=== PATIENT | female | born 1985 | race Caucasian/White ===

== ENCOUNTER 2023-08-08 11:24 | Emergency (ER) | payer MEDICAID ==
[~2023-08-08] VITALS: Ht 152.4 cm; Wt 74.8 kg
[2023-08-08 11:44] VITALS: O2SAT 100
[2023-08-08 12:11] LABS: BASOPHILS % 0.2 % (0.0-2.0); EOSINOPHILS % 0.1 % (0.0-5.0); HEMATOCRIT. 41.9 % (36.0-48.0); HEMOGLOBIN. 14.4 g/dL (12.0-16.0); LYMPHOCYTES % 9.9 % (20.0-50.0); MEAN CORPUSCULAR HEMOGLOBIN 27.8 pg (28.0-32.0); MEAN CORPUSCULAR HGB CONC 34.4 g/dL (31.0-37.0); MEAN CORPUSCULAR VOLUME 80.8 fL (81.0-99.0); MEAN PLATELET VOLUME 6.9 fl (7.4-10.4); MONOCYTES % 4.2 % (2.0-8.0); NEUTROPHILS % 85.6 % (40.0-76.0); PLATELET 355 x1000/uL (130-400); RED BLOOD CELL COUNT 5.19 mill/uL (4.2-5.4); RED CELL DISTRIBUTION WIDTH 13.2 % (11.6-14.6); WHITE BLOOD COUNT 18.5 x1000/uL (4.5-11.0)
[2023-08-08 12:13] LABS: CHLORIDE 101 mEq/L (98-107); POTASSIUM 4.3 mEq/L (3.5-5.1); SODIUM 135 mEq/L (136-145)
[2023-08-08 12:14] LABS: CALCIUM 9.3 mg/dL (8.7-10.4); CARBON DIOXIDE 27 mEq/L (21-32)
[2023-08-08 12:19] LABS: CREATININE 0.7 mg/dL (0.6-1.0); GLUCOSE 140 mg/dL (70-105); UREA NITROGEN BLOOD 9 mg/dL (9-23)
[2023-08-08 12:21] LABS: ALANINE AMINOTRANSFERASE 27 IU/L (10-49); ALBUMIN 4.9 g/dL (3.2-4.8); ASPARTATE AMINOTRANSFERASE 26 IU/L (<34); BILIRUBIN DIRECT 0.3 mg/dL (<=3.0)
[2023-08-08 12:22] LABS: PROTEIN TOTAL 7.9 g/dL (6.0-8.3)
[2023-08-08 13:08] LABS: HCG SCREEN NEGATIVE
[2023-08-08 14:38] LABS: CLARITY URINE CLEAR (CLEAR); COLOR URINE YELLOW (YELLOW); GLUCOSE URINE NEGATIVE (NEGATIVE); KETONES URINE NEGATIVE (NEGATIVE); LEUKOCYTE ESTERASE URINE NEGATIVE (NEGATIVE); NITRITE URINE NEGATIVE (NEGATIVE); OCCULT BLOOD URINE 2+ (NEGATIVE); PROTEIN URINE 1+ (NEGATIVE); SPECIFIC GRAVITY URINE 1.023 (1.005-1.030); UROBILINOGEN URINE 0.2 E.U./dL (0.2-1.0)
[2023-08-08] MEDS: SODIUM CHLORIDE 0.9% 1,000 ML IV ONE (14:51)
[2023-08-08] MEDS: ONDANSETRON 4MG ODT PO ONE (14:52)
[2023-08-08 15:02] LABS: SQUAMOUS EPITHELIAL CELL URINE 1+ /lpf (RARE/1+)
[2023-08-08 15:04] LABS: BACTERIA URINE NONE SEEN; WBC URINE 0-2 /hpf (0-2)
[2023-08-08 15:05] LABS: MUCUS URINE 1+ /lpf (< = 2+); YEAST URINE NONE SEEN
[2023-08-08] MEDS ORDERED: CEFEPIME 1GM IN DEXT 5% 50ML IV ONE (16:00)
[2023-08-08] MEDS: CEFEPIME 2GM/100ML 100 ML IV NR (16:33)
[2023-08-08 17:00] VITALS: BP 121/91; PULSE 99; RESP 16; TEMP 98.2
[2023-08-08] MEDS ORDERED: ONDANSETRON HCL 4MG/2ML INJ IV PRN (17:30)
[2023-08-08] MEDS ORDERED: MORPHINE SULFATE 2 MG/ML CPJ (NOT FOR IM USE) IV PRN (17:30)
[2023-08-08] MEDS ORDERED: DEXT 5%/0.45% NACL KCL 20MEQ/L 1,000 ML IV SCH (17:30)
[2023-08-08] MEDS ORDERED: MORPHINE SULFATE 4 MG/ML INJ (FOR IV/IM USE) IV PRN (17:30)
[2023-08-08] MEDS ORDERED: HYDROCODONE/ACETAMINOPHEN 5/325MG TABLET PO PRN ×2 (17:30)
[2023-08-08] MEDS ORDERED: BUPIVACAINE HCL/PF 0.5% (5MG/ML) 10ML ONE (18:04)
[2023-08-08] MEDS ORDERED: SKIN ADHESIVE 0.7 GM EA TOP ONE (18:04)
[2023-08-08] MEDS ORDERED: ROCURONIUM BROMIDE 10MG/ML VIAL 5ML IV ONE (18:08)
[2023-08-08] MEDS ORDERED: ONDANSETRON HCL 4MG/2ML INJ ONE (18:08)
[2023-08-08] MEDS ORDERED: DEXAMETHASONE 4MG/ML 1ML VIAL ONE (18:08)
[2023-08-08] MEDS ORDERED: FENTANYL CITRATE/PF 50MCG/ML 2ML VIAL ONE (18:09)
[2023-08-08] MEDS ORDERED: PROPOFOL 200MG/20ML VIAL IV ONE (18:09)
[2023-08-08] MEDS ORDERED: MIDAZOLAM HCL 2 MG/2 ML VIAL ONE (18:10)
[2023-08-08] MEDS ORDERED: NALOXONE HCL 0.4MG/ML VIAL IV PRN (18:15)
[2023-08-08] MEDS ORDERED: SUGAMMADEX SODIUM 200 MG/2 ML VIAL IV NR (18:15)
[2023-08-08] MEDS ORDERED: HYDROMORPHONE HCL/PF 2MG/ML CPJ IV PRN (18:30)
[2023-08-08] MEDS ORDERED: FENTANYL CITRATE/PF 50MCG/ML 2ML VIAL IV PRN (18:30)
[2023-08-08] MEDS ORDERED: IPRATROPIUM/ALBUTEROL 0.5-3(2.5)MG/3ML NEB HHN PRN (19:45)
[2023-08-08] MEDS ORDERED: MAGNESIUM/ALUMINUM HYDROXIDE/SIMETHICONE 30ML UDC PO PRN (19:45)
[2023-08-08] MEDS ORDERED: ACETAMINOPHEN 325MG TABLET PO PRN (19:45)
[2023-08-08] MEDS ORDERED: CLONIDINE 0.1MG TABLET PO PRN (19:45)
[2023-08-08] MEDS ORDERED: GUAIFENESIN 200MG/10ML SUGAR FREE UDC PO PRN (19:45)
[2023-08-08] MEDS: ONDANSETRON HCL 4MG/2ML INJ IV PRN (20:27)
== END 2023-08-08 17:27 | disposition admitted as inpatient to this hospital (09) ==
LOC: ER 12:41 → EDBEDREQ 16:12 → EDBEDREQTM 16:12 → ER 17:27
DX: K35.80 Unspecified acute appendicitis (principal); R11.2 Nausea with vomiting, unspecified
CPT/HCPCS: 44970; 80076; 80048; 81003; 84703; 83690; 85025; 36415; 88304; 74177; 99285; J3010; Q0162; J3490 ×2; J0692; J1100; J2250; J2405; J2704; J7030; A4217; Z7610 ×24

== ENCOUNTER 2023-11-11 19:29 | Emergency (ER) | payer MEDICAID ==
[~2023-11-11] VITALS: Ht 165.1 cm; Wt 74.0 kg
[2023-11-11 19:36] VITALS: TEMP 98; O2SAT 99
[2023-11-11 20:15] LABS: CLARITY URINE TURBID (CLEAR); COLOR URINE RED (YELLOW); GLUCOSE URINE NEGATIVE (NEGATIVE); KETONES URINE NEGATIVE (NEGATIVE); LEUKOCYTE ESTERASE URINE 2+ (NEGATIVE); NITRITE URINE NEGATIVE (NEGATIVE); OCCULT BLOOD URINE 3+ (NEGATIVE); PH URINE 5.5 (4.5-8.0); PROTEIN URINE 1+ (NEGATIVE); SPECIFIC GRAVITY URINE 1.022 (1.005-1.030); UROBILINOGEN URINE 0.2 E.U./dL (0.2-1.0)
[2023-11-11 20:29] LABS: BACTERIA URINE 2+; RBC URINE TNTC /hpf (0-2); SQUAMOUS EPITHELIAL CELL URINE 1+ /lpf (RARE/1+)
[2023-11-11 20:50] LABS: BASOPHILS % 0.3 % (0.0-2.0); EOSINOPHILS % 1.7 % (0.0-5.0); HEMATOCRIT. 40.2 % (36.0-48.0); HEMOGLOBIN. 13.7 g/dL (12.0-16.0); LYMPHOCYTES % 30.4 % (20.0-50.0); MEAN CORPUSCULAR HEMOGLOBIN 28.4 pg (28.0-32.0); MEAN CORPUSCULAR HGB CONC 34.1 g/dL (31.0-37.0); MEAN CORPUSCULAR VOLUME 83.3 fL (81.0-99.0); NEUTROPHILS % 58.6 % (40.0-76.0); PLATELET 347 x1000/uL (130-400); RED BLOOD CELL COUNT 4.82 mill/uL (4.2-5.4); RED CELL DISTRIBUTION WIDTH 13.5 % (11.6-14.6); WHITE BLOOD COUNT 11.2 x1000/uL (4.5-11.0)
[2023-11-11 20:53] LABS: CHLORIDE 103 mEq/L (98-107); POTASSIUM 4.3 mEq/L (3.5-5.1)
[2023-11-11 20:54] LABS: SODIUM 136 mEq/L (136-145)
[2023-11-11 20:55] LABS: CALCIUM 9.7 mg/dL (8.7-10.4); CARBON DIOXIDE 28 mEq/L (21-32)
[2023-11-11 20:59] LABS: CREATININE 0.6 mg/dL (0.6-1.0)
[2023-11-11 21:00] LABS: GLUCOSE 84 mg/dL (70-105); UREA NITROGEN BLOOD 10 mg/dL (9-23)
[2023-11-12] MEDS ORDERED: CEPH500C2 MT (05:47)
[2023-11-12 06:20] VITALS: BP 145/79; PULSE 86; RESP 16; O2SAT 100
== END 2023-11-12 06:25 | disposition home or self-care (01) ==
LOC: ER 19:29
DX: O20.0 Threatened abortion (principal); O23.31 Infections of other parts of urinary tract in pregnancy, first trimester; O36.4XX0 Maternal care for intrauterine death, not applicable or unspecified; Z3A.08 8 weeks gestation of pregnancy; Z90.49 Acquired absence of other specified parts of digestive tract; Z98.890 Other specified postprocedural states
CPT/HCPCS: 36415; 76801; 80048; 81003; 81025; 85025; 99284